=== PATIENT | female | born 1975 | race Caucasian/White ===

== ENCOUNTER 2017-03-26 00:59 | Emergency (ER) | payer OTHER ==
[~2017-03-26] VITALS: Ht 157.5 cm; Wt 99.8 kg
--- NOTE | ~2017-03-26 | CT71 ---
[facility] A Service [facility] RADIOLOGY TEXT RESULTS PATIENT: KENDRA GUTIERREZ LOCATION: SED : 79 UNIT #: [id number] AGE: [address]: Jose Ramon Martinez DO SEX: F ORDER DR: [id number] [place] [id number] [id number] E MR#: [id number] Acc #: [id number] NAME: KENDRA GUTIERREZ : 1975 SEX: F STUDY DATE/TIME: 03/26/2017 4:32 UNIT: SED ROOM: STUDY DESCRIPTION: CT Head Wo Contrast Attending Physician: Jose Ramon Martinez D.O.. Ordering Physician: Jose Ramon Martinez D.O.. Primary Care Physician: Primary Care Physician No MEDICAL IMAGING REPORT This report is preliminary unless electronic signature is present. EXAM CT head, noncontrast, 03/26/2017 HISTORY 42-year-old female in the ED complaining of headache and dizziness beginning several hours prior to arrival. TECHNIQUE CT examination of the head without IV contrast. This CT exam was performed with one or more of the following radiation dose reduction techniques: automatic exposure control, adjustment of mA and/or kV according to patient size, and iterative reconstruction. FINDINGS A few of the lower brain images are degraded by patient motion artifact. The examination is otherwise negative. No evidence of intracranial hemorrhage, mass, mass effect, cerebral edema, hydrocephalus or additional abnormality. IMPRESSION Negative head CT examination. Motion limited study. Dictated by... Jon Diallo M.D. THIS IS AN ELECTRONICALLY VERIFIED REPORT Jon Diallo M.D. at 03/27/2017 6:02 AM MARIA GUADALUPEW/naresh [facility] A [facility] RADIOLOGY TEXT RESULTS PATIENT: KENDRA GUTIERREZ LOCATION: SED : 77 UNIT #: [id number] AGE: [address]: Jose Ramon Martinez DO SEX: F ORDER DR: TD: 03/27/2017 04:01 JOB #: [id number] MEDICAL IMAGING REPORT Page 1 of 1
--- NOTE | ~2017-03-26 | EKG ---
PATIENT: KENDRA GUTIERREZ UNIT #: [id number] Ventricular Rate: 54 BPM Atrial Rate: 54 BPM P-R Interval: 164 ms QRS Duration: 92 ms Q-T Interval: 432 ms QTC Calculation(Bezet): 409 ms P [place]: 48 degrees Calculated R [place]: 18 degrees Calculated T [place]: 30 degrees Diagnosis Line: Sinus bradycardia with Premature atrial complexes Diagnosis Line: Otherwise normal ECG Diagnosis Line: When compared with ECG of 30-AUG-2016 22:28, Diagnosis Line: Premature atrial complexes are now Present Diagnosis Line: Nonspecific T wave abnormality no longer evident Diagnosis Line: in Lateral leads Diagnosis Line: Confirmed by TESHA KIMBROUGH MD ([id number]) on Diagnosis Line: 03/29/2017 11:17:53 AM INTERPRETING MD: KAYLAN PHAN
[~2017-03-26 00:59] MED LIST: AMOXICILLIN PO; AMOXICILLIN250 MG PO; AZITHROMYCIN250 MG PO; FLEXERIL10 MG PO; HYDROCHLOROTHIA25 MG PO; LISINOPRIL; MOTRIN400 MG PO; NAPROXEN PO; NO MEDICATIONS; PROMETHAZINE-D240 ML PO; RONDEC DROPS30 ML PO; ZOFRAN ODT4 MG PO
[2017-03-26] MEDS ORDERED: AMOXIL500 M2 PO (01:08)
[2017-03-26 02:59] LABS: BASOPHIL# 0.1 X10e3 (0-0.3); BASOPHIL% 0.5 % (0-2.5); EOSINOPHIL# 0.5 X10e3 (0-0.7); EOSINOPHIL% 4.8 % (0.0-7.0); HEMATOCRIT 39.5 % (35.0-45.0); HEMOGLOBIN 13.5 gm/dL (12.0-16.0); LYMPHOCYTE# 5.1 X10e3 (1.0-3.5); LYMPHOCYTE% 48.1 % (17.0-45.0); MEAN CELL VOLUME 87.1 FL (83-96); MEAN CORPUSCULAR HEMOGLOBIN 29.9 PG (28-34); MEAN CORPUSCULAR HGB CONC 34.3 g/dL (30-36); MEAN PLATELET VOLUME 8.8 FL (6.5-11.5); MONOCYTE# 0.7 X10e3 (0-1.0); MONOCYTE% 6.4 % (3.0-12.0); NEUTROPHIL# 4.2 X10e3 (1.5-7.1); NEUTROPHIL% 40.2 % (40-75); PLATELET COUNT 319 X10e3 (140-420); RED BLOOD COUNT 4.53 X10e (3.90-5.30); RED CELL DISTRIBUTION WIDTH 13.8 % (11.0-15.5); WHITE BLOOD COUNT 10.6 X10e3 (4.0-10.5)
[2017-03-26 03:00] LABS: DIFF IND NO
[2017-03-26 03:03] LABS: PROTHROMBIN TIME (PATIENT) 10.8 SECONDS (9.5-12.4)
[2017-03-26 03:10] LABS: PARTIAL THROMBOPLASTIN TIME 27.9 SECONDS (25.6-38.1)
[2017-03-26 03:16] LABS: BILIRUBIN, DIRECT 0.1 mg/dL (0.0-0.2); BILIRUBIN,INDIRECT 0.3 mg/dL (0.0-0.9); BILIRUBIN,TOTAL 0.4 mg/dL (0.2-2.0); BUN/CREATININE RATIO 15.71; CALCIUM SERUM 9.3 mg/dL (8.4-10.2); CREATININE SERUM 0.7 mg/dL (0.6-1.4); GLOM FILT RATE Estimated 108.4 mL/min (>60); PROTEIN TOTAL SERUM 7.7 g/dL (6.0-8.3)
[2017-03-26 03:19] LABS: POTASSIUM 2.9 mmol/L (3.5-5.1)
== END 2017-03-26 05:40 | disposition home or self-care (01) ==
LOC: SED 00:59
PROVIDERS: Emergency Medicine
DX: I10 Essential (primary) hypertension (principal); E87.6 Hypokalemia; R51 Headache; F17.200 Nicotine dependence, unspecified, uncomplicated; Z79.899 Other long term (current) drug therapy
CPT/HCPCS: 36415; 70450; 80048; 80076; 85025; 85610; 85730; 93005; 96365; 96375; 99284; J1200; J2765